=== PATIENT | male | born 1955 ===

== ENCOUNTER 2023-05-04 20:47 | Emergency (ER) | payer MEDICARE, OTHER ==
[~2023-05-04] VITALS: Ht 177.8 cm; Wt 90.7 kg
[2023-05-04] MEDS ORDERED: KETOROLAC 30 MG/ML VIAL IVP STA (22:04)
[2023-05-04] MEDS ORDERED: ONDANSETRON 4 MG/2 ML (SDV) Z0FRAN IVP ONE (22:15)
[2023-05-04] MEDS ORDERED: LACTATED RINGERS 1,000 ML IV ONE (22:15)
[2023-05-04 22:19] LABS: BASOPHILS # (AUTO) 0.1 10^3/uL (0.0-0.1); BASOPHILS % (AUTO) 1 % (0-10); EOSINOPHILS # (AUTO) 0.2 10^3/uL (0.0-0.3); EOSINOPHILS % (AUTO) 2 % (0-10); HEMATOCRIT 46 % (40-54); LYMPHOCYTES # (AUTO) 1.3 10^3/uL (1.0-4.0); LYMPHOCYTES % (AUTO) 12 % (12-44); MEAN CORPUSCULAR HEMOGLOBIN 30 pg (25-34); MEAN CORPUSCULAR HGB CONC 35 g/dL (32-36); MEAN CORPUSCULAR VOLUME 87 fL (80-99); MEAN PLATELET VOLUME 10.7 fL (9.0-12.2); MONOCYTES # (AUTO) 0.6 10^3/uL (0.0-1.0); MONOCYTES % (AUTO) 5 % (0-12); NEUTROPHILS # (AUTO) 8.7 10^3/uL (1.8-7.8); NEUTROPHILS % (AUTO) 80 % (42-75); PLATELET COUNT 243 10^3/uL (130-400); WHITE BLOOD COUNT 10.8 10^3/uL (4.3-11.0)
[2023-05-04 22:34] LABS: ALBUMIN 4.3 GM/DL (3.2-4.5); BILIRUBIN,TOTAL 0.7 MG/DL (0.1-1.0); CALCIUM 9.5 MG/DL (8.5-10.1); CREATININE SERUM 1.25 MG/DL (0.60-1.30); POTASSIUM 3.9 MMOL/L (3.6-5.0); TOTAL PROTEIN 7.2 GM/DL (6.4-8.2)
[2023-05-04 22:55] LABS: BILIRUBIN,URINE NEGATIVE (NEGATIVE); CLARITY,URINE CLEAR; COLOR,URINE YELLOW; GLUCOSE, URINE (UA) TRACE (NEGATIVE); KETONES,URINE 1+ (NEGATIVE); LEUKOCYTE ESTERASE ,URINE NEGATIVE (NEGATIVE); NITRITE,URINE NEGATIVE (NEGATIVE); PROTEIN,URINE 1+ (NEGATIVE)
[2023-05-04 23:03] LABS: BACTERIA,URINE TRACE /HPF; RBC,URINE 50-100 /HPF; SQUAMOUS EPITHELIAL CELL,UR 0-2 /HPF; WBC,URINE RARE /HPF
[2023-05-04 23:04] LABS: HYALINE CASTS, URINE 0-2 /LPF
[2023-05-04 23:08] LABS: AMPHETAMINE SCREEN, URINE NEGATIVE (NEGATIVE); BARBITURATE SCREEN URINE NEGATIVE (NEGATIVE); BENZODIAZEPINES SCREEN URINE NEGATIVE (NEGATIVE); CANNABINOID SCREEN, URINE NEGATIVE (NEGATIVE); COCAINE SCREEN URINE NEGATIVE (NEGATIVE); METHADONE STAT NEGATIVE (NEGATIVE); OPIATE SCREEN URINE NEGATIVE (NEGATIVE); OXYCODONE STAT POSITIVE (NEGATIVE); PROPOXYPHENE STAT NEGATIVE (NEGATIVE); TRICYCLIC ANTIDEPRESSANTS SCRE NEGATIVE (NEGATIVE)
[2023-05-05] MEDS ORDERED: RX-ONDANSETRON 4 MG ODT (ZOFRAN) PPK #4 PO STA (00:17)
[2023-05-05] MEDS ORDERED: ONDA8TAB13 PO (00:23)
[2023-05-05] MEDS ORDERED: KETO10TA PO (00:23)
[2023-05-05] MEDS ORDERED: TMSL.4C PO (00:23)
[2023-05-05] MEDS ORDERED: ACHD5005 PO (00:23)
--- NOTE | 2023-05-05 00:23 | ED Back Pain ---
General Chief Complaint: Back Problems Stated Complaint: ABD PAIN Nursing Triage Note: PT AMB TO ED BY POV WITH C/O R LOWER BACK PAIN SINCE FRIDAY AND NAUSEA. PT REPORTS HE HAS HAD KIDNEY STONES IN THE PAST AND THIS FEELS SIMILAR. DENIES PAIN, BURNING OR URGENCY WITH URINATION. DENIES INJURY. REPORT HE TOOK A PERCOCET AND TYLENOL A COUPLE OF HRS AGO. Source of Information: Patient Allergies and Home Medications Allergies Coded Allergies: No Known Drug Allergies (Unverified , 05/04/23) Past Vvqjhzo-Cwvdsa-Igldmq Hx Patient Social History Tobacco Use?: No Use of E-Cig and/or Vaping dev: No Substance use?: No Alcohol Use?: Yes Alcohol type: Beer Alcohol Frequency: Daily Pt feels they are or have been: No Immunizations Up To Date Influenza Vaccine Up-to-Date: Yes; Up-to-Date First/Initial COVID19 Vaccinat: X4 Second COVID19 Vaccination Wilfredo: X4 Third COVID19 Vaccination Date: X4 Past Medical History Surgery/Hospitalization HX: APPENDECTOMY Physical Exam Vital Signs Vital Signs - First Documented 05/04/23 21:09 Temp 36.2 Pulse 72 Resp 16 B/P (MAP) 178/99 (125) Pulse Ox 93 O2 Delivery Room Air Capillary Refill : Less Than 3 Seconds Height, Weight, BMI Height: '" Weight: lbs. oz. kg; 28.00 BMI Method: Progress/Results/Core Measures Results/Orders Lab Results Laboratory Tests Test 05/04/23 21:15 05/04/23 22:49 Range/Units White Blood Count 10.8 4.3-11.0 10^3/uL Red Blood Count 5.31 4.30-5.52 10^6/uL Hemoglobin 16.0 13.3-17.7 g/dL Hematocrit 46 40-54 % Mean Corpuscular Volume 87 80-99 fL Mean Corpuscular Hemoglobin 30 25-34 pg Mean Corpuscular Hemoglobin Concent 35 32-36 g/dL Red Cell Distribution Width 12.4 10.0-14.5 % Platelet Count 243 130-400 10^3/uL Mean Platelet Volume 10.7 9.0-12.2 fL Immature Granulocyte % (Auto) 1 % Neutrophils (%) (Auto) 80 H 42-75 % Lymphocytes (%) (Auto) 12 12-44 % Monocytes (%) (Auto) 5 0-12 % Eosinophils (%) (Auto) 2 0-10 % Basophils (%) (Auto) 1 0-10 % Neutrophils # (Auto) 8.7 H 1.8-7.8 10^3/uL Lymphocytes # (Auto) 1.3 1.0-4.0 10^3/uL Monocytes # (Auto) 0.6 0.0-1.0 10^3/uL Eosinophils # (Auto) 0.2 0.0-0.3 10^3/uL Basophils # (Auto) 0.1 0.0-0.1 10^3/uL Immature Granulocyte # (Auto) 0.1 0.0-0.1 10^3/uL Sodium Level 140 135-145 MMOL/L Potassium Level 3.9 3.6-5.0 MMOL/L Chloride Level 107 98-107 MMOL/L Carbon Dioxide Level 21 21-32 MMOL/L Anion Gap 12 5-14 MMOL/L Blood Urea Nitrogen 15 7-18 MG/DL Creatinine 1.25 0.60-1.30 MG/DL Estimat Glomerular Filtration Rate 63 BUN/Creatinine Ratio 12 Glucose Level 191 H 70-105 MG/DL Calcium Level 9.5 8.5-10.1 MG/DL Corrected Calcium 9.3 8.5-10.1 MG/DL Total Bilirubin 0.7 0.1-1.0 MG/DL Aspartate Amino Transf (AST/SGOT) 13 5-34 U/L Alanine Aminotransferase (ALT/SGPT) 15 0-55 U/L Alkaline Phosphatase 75 40-136 U/L Total Protein 7.2 6.4-8.2 GM/DL Albumin 4.3 3.2-4.5 GM/DL Amylase Level 92 25-125 U/L Lipase 25 8-78 U/L Urine Color YELLOW Urine Clarity CLEAR Urine pH 6.0 5-9 Urine Specific Provencal >=1.030 1.016-1.022 Urine Protein 1+ H NEGATIVE Urine Glucose (UA) TRACE H NEGATIVE Urine Ketones 1+ H NEGATIVE Urine Nitrite NEGATIVE NEGATIVE Urine Bilirubin NEGATIVE NEGATIVE Urine Urobilinogen 1.0 < = 1.0 MG/DL Urine Leukocyte Esterase NEGATIVE NEGATIVE Urine RBC (Auto) 3+ H NEGATIVE Urine RBC 50-100 H /HPF Urine WBC RARE /HPF Urine Squamous Epithelial Cells 0-2 /HPF Urine Crystals NONE /LPF Urine Bacteria TRACE /HPF Urine Casts PRESENT /LPF Urine Hyaline Casts 0-2 H /LPF Urine Mucus LARGE H /LPF Urine Culture Indicated NO Urine Opiates Screen NEGATIVE NEGATIVE Urine Oxycodone Screen POSITIVE H NEGATIVE Urine Methadone Screen NEGATIVE NEGATIVE Urine Propoxyphene Screen NEGATIVE NEGATIVE Urine Barbiturates Screen NEGATIVE NEGATIVE Ur Tricyclic Antidepressants Screen NEGATIVE NEGATIVE Urine Phencyclidine Screen NEGATIVE NEGATIVE Urine Amphetamines Screen NEGATIVE NEGATIVE Urine Methamphetamines Screen NEGATIVE NEGATIVE Urine Benzodiazepines Screen NEGATIVE NEGATIVE Urine Cocaine Screen NEGATIVE NEGATIVE Urine Cannabinoids Screen NEGATIVE NEGATIVE My Orders Orders - RANULFO CHAPA DO Ua Culture If Indicated (05/04/23 21:25) Ed Iv/Invasive Line Start (05/04/23 22:04) Ct Abd/Pelvis Wo(Kidney Stone) (05/04/23 22:04) Amylase (05/04/23 22:04) Cbc With Automated Diff (05/04/23 22:04) Comprehensive Metabolic Panel (05/04/23 22:04) Drug Screen Stat (Urine) (05/04/23 22:04) Lipase (05/04/23 22:04) Ed Iv/Invasive Line Start (05/04/23 22:04) Lactated Ringers (Lr 1000 Ml Iv Solution (05/04/23 22:15) Ondansetron Injection (Zofran Injectio (05/04/23 22:15) Ketorolac Injection (Toradol Injection) (05/04/23 22:04) Abdomen/Kub 1view (05/04/23 22:11) Medications Given in ED Current Medications Medications Dose Ordered Sig/Hyacinth Route Start Time Stop Time Status Last Admin Dose Admin Lactated Ringer's 1,000 ml @ 0 mls/hr Q0M ONCE IV 05/04/23 22:15 05/04/23 22:16 DC 05/04/23 22:21 999 MLS/HR Ondansetron HCl 8 mg ONCE ONCE IVP 05/04/23 22:15 05/04/23 22:16 DC 05/04/23 22:20 8 MG Vital Signs/I&O 05/04/23 21:09 Temp 36.2 Pulse 72 Resp 16 B/P (MAP) 178/99 (125) Pulse Ox 93 O2 Delivery Room Air Blood Pressure Mean: 125 Departure Impression Primary Impression: Right ureteral calculus Additional Impression: Left renal mass Disposition: HOME, SELF-CARE Condition: Improved Departure-Patient Inst. Decision time for Depature: 00:01 Referrals: NO,LOCAL PHYSICIAN (PCP) Primary Care Physician Patient Instructions: Kidney Stone, Adult ED, Kidney Stone Diet, How to Strain Your Urine Add. Discharge Instructions: STRAIN ALL URINE--RETURN ANY STONES TO YOUR LOCAL UROLOGIST OFFICE LOTS OF CLEAR LIQUIDS FOLLOW UP WITH UROLOGIST IN YOUR AREA AT HOME FOR FURTHER CARE--CALL IN THE [place] RNING TO SCHEDULE AN APPOINTMENT All discharge instructions reviewed with patient and/or family. Voiced understanding. Scripts Hydrocodone/Acetaminophen (Hydrocodone-Acetamin 5-325 mg) 5 Mg-325 Mg Tablet 1 EACH PO Q4-6 HOURS PRN for PAIN, #20 TAB Prov: RANULFO CHAPA DO 05/05/23 Ketorolac Tromethamine (Ketorolac Tromethamine) 10 Mg Tablet 10 MG PO Q6H for Pain, #15 TAB Prov: RANULFO CHAPA DO 05/05/23 Ondansetron (Ondansetron Odt) 8 Mg Tab.rapdis 8 MG PO Q6H, #10 TAB Prov: RANULFO CHAPA DO 05/05/23 Tamsulosin HCl (Flomax) 0.4 Mg Cap 0.4 MG PO DAILY, #10 CAP Prov: RANULFO CHAPA DO 05/05/23 RANULFO CHAPA DO May 05, 2023 00:23
[2023-05-05] MEDS ORDERED: TAMSULOSIN 0.4 MG (FLOMAX) CAP PO SCH (00:30)
[2023-05-05 00:42] VITALS: BP 158/85
--- NOTE | 2023-05-05 08:00 | Diagnostic Imaging Report ---
CT ABD/PELVIS WO(KIDNEY STONE) TECHNIQUE: Unenhanced CT imaging of the abdomen and pelvis was performed. 2-D reformats are created and submitted for interpretation. Automatic exposure controls were utilized to optimize patient dose. INDICATION: Right flank pain COMPARISON: None available. FINDINGS: Lower chest: The lung bases are clear. No pericardial or pleural effusion. Peritoneum: No free intraperitoneal air or fluid. Liver and biliary system: Unenhanced liver is normal. The gallbladder is normal. No biliary duct dilation. Spleen and Pancreas: Spleen is [id number]. Unenhanced pancreas is grossly normal. Adrenals: Normal. tract: Mild right hydronephrosis due to a 4 mm partially obstructing stone in the proximal ureter at the UPJ. The exophytic cyst in the mid right kidney measures up to 7 cm. There is a 1.5 x 1.6 cm exophytic nodule in the anterior aspect of the mid left kidney. Urinary bladder is decompressed. Prostate is not enlarged. GI tract: Stomach is decompressed. No bowel obstruction. No pericolonic inflammatory changes. Appendix is not seen but there are no secondary features of acute appendicitis. Vasculature and Lymph nodes: Normal caliber aorta. No abdominal or pelvic lymphadenopathy. Musculoskeletal: No concerning osseous lesion. IMPRESSION: 1. Mild right hydronephrosis due to a 4 mm partially obstructing stone at the UPJ. 2. Indeterminate 1.5 x 1.6 mm left renal nodule. Recommend MRI or CT abdomen without and with IV contrast per the renal mass protocol to determine if this is a complex cyst or solid mass. Dictated by: Dictated on workstation # [id number]
--- NOTE | 2023-05-05 08:35 | Diagnostic Imaging Report ---
Indication: Right flank pain and history of appendectomy. Findings: Correlated with CT earlier today, the calculus at the level of the right ureteral pelvic junction is imperceptible at this exam, may be obscured by gaseous and fecal bowel content overlying. No bowel obstruction. Impression: Known right-sided stone is imperceptible at this exam probably obscured by background bowel content. Dictated by: Dictated on workstation # [id number]
== END 2023-05-05 00:45 | disposition home or self-care (01) ==
LOC: ER 20:51
DX: N13.2 Hydronephrosis with renal and ureteral calculous obstruction (principal); N28.89 Other specified disorders of kidney and ureter; Z90.49 Acquired absence of other specified parts of digestive tract
CPT/HCPCS: 36415; 74018; 74176; 80053; 80306; 81000; 82150; 83690; 85025